=== PATIENT | female | born 2000 | race Caucasian/White ===

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

== ENCOUNTER 2021-06-01 13:17 | Observation (INO) ==
[2021-06-01 13:30] VITALS: O2SAT 100
[2021-06-01 14:14] LABS: Basophils % 0.2 %; Hematocrit 23.4 % (35.3-44.9); Immature Granulocytes % 0.5 % (0-4); Lymphocytes # 0.8 K/mcL (0.6-4.6); Mean Corpuscular HGB Conc 34.2 g/dL (31.6-35.5); Mean Corpuscular Hemoglobin 29.6 pg (28.0-33.3); Mean Corpuscular Volume 86.7 fL (83.0-100.0); Mean Platelet Volume 9.6 fL (9.4-12.4); Monocytes # 0.3 K/mcL (0.0-1.3); Monocytes % 3.5 %; Neutrophils # 7.3 K/mcL (1.6-8.9); Platelet Count 172 K/mcL (140-400); Red Cell Distribution Width 13.1 % (11.5-14.5); Segmented Neutrophils % 86.8 %; White Blood Count 8.4 K/mcL (4.3-11.1)
[2021-06-01] MEDS ORDERED: 0.9 % Sodium Chloride 1,000 ML ONE (17:13)
[2021-06-01] MEDS ORDERED: *HR* Midazolam HCl 2 MG/2 ML VIAL ONE (18:23)
[2021-06-01] MEDS ORDERED: *HR* FentaNYL (PF) 100 MCG/2 ML VIAL ONE (18:23)
[2021-06-01] MEDS ORDERED: *HR* Propofol 200 MG/20 ML VIAL IVP ONE (18:23)
[2021-06-01] MEDS ORDERED: *HR* Rocuronium Bromide 50 MG/5 ML VIAL ONE (18:24)
[2021-06-01] MEDS ORDERED: *HR* Vasopressin 20 UNIT/ML VIAL ONE (18:31)
[2021-06-01] MEDS ORDERED: *HR* Norepinephrine 4 MG/4 ML VIAL IVC ONE (18:31)
[2021-06-01] MEDS ORDERED: Albumin Human 5% 12.5 GM/250 ML IV.SOLN ONE (18:31)
[2021-06-01] MEDS ORDERED: Lidocaine/EPI 1:100k 1% 50 ML VIAL ONE (18:32)
[2021-06-01] MEDS ORDERED: MetroNIDAZOLE 500 MG/100 ML 500 MG/100 ML BAG IVPB ONE ×2 (18:42→19:57)
[2021-06-01] MEDS ORDERED: *HR* Belladonna Alkaloids/Opium 30 MG RECTAL SUPPOSITORY RC ONE ×2 (18:43→19:26)
[2021-06-01] MEDS ORDERED: *HR* FentaNYL (PF) 100 MCG/2 ML VIAL IVP PRN (18:56)
[2021-06-01] MEDS ORDERED: Albuterol 2.5 MG/3 ML NEBULIZER IH PRN (18:56)
[2021-06-01] MEDS ORDERED: Naloxone 0.4 MG/ML INJ IVP PRN (18:56)
[2021-06-01] MEDS ORDERED: Nitroglycerin 0.4 MG TAB.SUBL SL PRN (18:56)
[2021-06-01] MEDS ORDERED: *HR* HYDROmorphone (PF) 1 MG/ML SYRINGE IVP PRN (18:56)
[2021-06-01] MEDS ORDERED: Ondansetron 4 MG/2 ML VIAL IVP PRN (18:56)
[2021-06-01] MEDS ORDERED: ceFAZolin 2,000 MG in Water for inj. (sterile) 20 ML IVP SCH (19:00)
[2021-06-01] MEDS ORDERED: Ondansetron 4 MG/2 ML VIAL ONE (20:03)
[2021-06-01] MEDS ORDERED: 0.9 % Sodium Chloride 500 ML ONE (20:50)
[2021-06-01] MEDS ORDERED: *HR* OxyCODONE Immed Rel 5 MG TABLET PO ONE (22:17)
[2021-06-01] MEDS ORDERED: Ketorolac 30 MG/ML VIAL IVP ONE (22:17)
[2021-06-01 22:58] VITALS: BP 113/75; PULSE 73; TEMP 97.7
== END 2021-06-01 23:30 | disposition home or self-care (01) ==
LOC: EMEROOARM 13:17 → 1NENUPED 13:17
PROVIDERS: ADMIT Obstetrics & Gynecology; ATTEND Obstetrics & Gynecology